=== PATIENT | female | born 1955 | race Caucasian/White ===

== ENCOUNTER 2017-01-04 01:16 | Emergency (ER) | payer MEDICARE ==
[~2017-01-04 01:16] MED LIST: AMITRIPTYLINE100 MG PO; ASPIRIN CHEWABL81 MG PO; BACLOFEN 10MG T10 MG PO; BREO ELLIPTA 11 EACH INH; CALCIUM + VITA1 EACH PO; CELEXA 40MG TAB40 MG PO; COZAAR50 MG PO; FERROUS SULFAT324 MG PO; LIDOCAINE 5% P1 EACH TOP; LOVAZA1 GM PO; MELATONIN3 MG PO; NORCO 5-325 TA1 EACH PO; PRAVACHOL40 MG PO; PROBIOTIC1 EAC1 PO; VITAMIN B COMP1 EACH PO; VITAMIN D5000 UNIT PO; XARELTO10 MG PO; ZANTAC150 MG PO
[2017-01-04 02:08] LABS: BASOPHIL 0.1 % (0-2); EOSINOPHIL 0.8 % (0-5); HCT 41.1 % (37.0-47.0); HGB 13.5 g/dl (12.5-16.0); LYMPHOCYTE 3.5 % (15-48); MCH 30.3 pg (25.0-31.0); MCHC 32.8 g/dL (32.0-36.0); MCV 92.2 fL (78.0-100.0); MONOCYTE 9.5 % (0-12); MPV 11.8 fL (6.0-9.5); NEUTROPHIL 86.1 % (41-80); PLT 177 K/uL (150-400); RBC 4.46 M/uL (4.20-5.40); RDW 14.9 % (11.5-14.0); WBC 13.3 K/uL (4.0-10.5)
[2017-01-04 02:24] LABS: ALBUMIN 3.3 g/dL (3.4-4.8); BILIRUBIN - TOTAL 0.4 mg/dL (0.1-1.0); CREATININE 1.1 mg/dL (0.5-1.0); GLOBULIN (CALCULATION) 2.3 g/dL (2.2-4.2); POTASSIUM 3.5 mmol/L (3.5-5.1); TOTAL PROTEIN 5.6 g/dL (6.4-8.3)
[2017-01-04 04:31] LABS: BILIRUBIN NEGATIVE (NEGATIVE); BLOOD NEGATIVE Ery/uL (NEGATIVE); CLARITY CLEAR (CLEAR); COLOR YELLOW (YELLOW); GLUCOSE (U) NORMAL (NORMAL); KETONE (U) NEGATIVE (NEGATIVE); LEUKOCYTES NEGATIVE Leu/uL (NEGATIVE); NITRITE NEGATIVE (NEGATIVE); PROTEIN NEGATIVE (NEGATIVE); SPECIFIC GRAVITY <=1.005 (1.001-1.030); UROBILINOGEN 0.2 mg/dL (0.2-1.0)
[2017-01-04 04:41] LABS: AMPHETAMINES NEGATIVE (NEGATIVE); BENZODIAZEPINES NEGATIVE (NEGATIVE); COCAINE NEGATIVE (NEGATIVE); MARIJUANA (THC) NEGATIVE (NEGATIVE)
[2017-01-04 04:42] LABS: BARBITURATES NEGATIVE (NEGATIVE); METHADONE NEGATIVE (NEGATIVE); TRICYCLIC ANTIDEPRESSANT NEGATIVE (NEGATIVE)
== END 2017-01-04 12:29 | disposition other institution (70) ==
LOC: FER 01:16
PROVIDERS: Emergency Medicine Emergency Medical Services
DX: I95.1 Orthostatic hypotension (principal); R11.2 Nausea with vomiting, unspecified; R10.84 Generalized abdominal pain; I10 Essential (primary) hypertension; J44.9 Chronic obstructive pulmonary disease, unspecified; F17.210 Nicotine dependence, cigarettes, uncomplicated; K21.9 Gastro-esophageal reflux disease without esophagitis; E78.5 Hyperlipidemia, unspecified; Z86.73 Personal history of transient ischemic attack (TIA), and cerebral infarction without residual deficits; M51.34 Other intervertebral disc degeneration, thoracic region; J98.11 Atelectasis; E27.9 Disorder of adrenal gland, unspecified; Z90.49 Acquired absence of other specified parts of digestive tract
CPT/HCPCS: 36415; 70450; 71010; 72125; 72128; 72131; 73080; 73630; 80053; 80305; 81003; 82150; 83605; 83690; 84484; 85025; 87040; 87045; 87046; 87088; 87493; 93005; 96374; J1100; J2405; J2543; J2930; J3010; Q9967

== ENCOUNTER → 2020-10-09 | Day surgery (SDC) | payer MEDICARE ==
[~2020-10-09] MED LIST changes: +24HR ALLERGY REL5 MG PO; +ANORO ELLIPTA1 EACH INH; +CALCIUM PO; +CERTAGEN1 EACH PO; +CYMBALTA 30MG C30 MG PO; +FAMOTIDINE40 MG PO; +HYDROXYZINE PAM25 MG PO; +LYRICA 50MG CAP50 MG PO; +LYRICA200 MG PO; +MAG-OXIDE 400M400 MG PO; +METFORMIN HCL500 MG PO; +MOBIC7.5 MG PO; +OXYCODONE-ACET1 EAC1 PO; +PERCOCET 5-3251 EACH PO; +POTASSIUM GLUC500 MG PO; +PROTONIX 40MG T40 MG PO; +SINGULAIR10 MG PO; +TIZANIDINE HCL4 MG PO; +TRIAMCINOLONE 080 GM TOP; +UROCIT-K10 MEQ PO; +VENTOLIN HFA IN18 GM INH; +VIT B6 PO; +VIT C PO; +VITAMIN B-121000 MCG PO; +VITAMIN C WIT1000 MG PO; +VOLTAREN100 GM TOP; +ZINC50 M2 PO
== END | disposition home or self-care (01) ==
LOC: FAS 10:12
DX: K29.50 Unspecified chronic gastritis without bleeding (principal); K21.9 Gastro-esophageal reflux disease without esophagitis; F17.210 Nicotine dependence, cigarettes, uncomplicated; M81.0 Age-related osteoporosis without current pathological fracture; F41.9 Anxiety disorder, unspecified; J44.9 Chronic obstructive pulmonary disease, unspecified; F32.9 Major depressive disorder, single episode, unspecified; E11.51 Type 2 diabetes mellitus with diabetic peripheral angiopathy without gangrene; I10 Essential (primary) hypertension; E78.5 Hyperlipidemia, unspecified; M06.9 Rheumatoid arthritis, unspecified; G47.30 Sleep apnea, unspecified; Z99.89 Dependence on other enabling machines and devices; Z86.73 Personal history of transient ischemic attack (TIA), and cerebral infarction without residual deficits; Z88.5 Allergy status to narcotic agent; Z79.82 Long term (current) use of aspirin; Z79.84 Long term (current) use of oral hypoglycemic drugs; Z79.899 Other long term (current) drug therapy
CPT/HCPCS: 88305; J2704; J7120

== ENCOUNTER 2021-09-29 20:58 | Day surgery (SDCO) | payer MEDICARE ==
[~2021-09-29] VITALS: Ht 160 cm; Wt 56.6 kg
[2021-09-29 23:06] LABS: BILIRUBIN NEGATIVE (NEGATIVE); BLOOD NEGATIVE Ery/uL (NEGATIVE); CLARITY CLEAR (CLEAR); COLOR YELLOW (YELLOW); GLUCOSE (U) NORMAL (NORMAL); LEUKOCYTES NEGATIVE Leu/uL (NEGATIVE); NITRITE NEGATIVE (NEGATIVE); PROTEIN NEGATIVE (NEGATIVE); UROBILINOGEN 0.2 mg/dL (0.2-1.0); pH 5.5 (5.0-9.0)
[2021-09-29 23:07] LABS: EOSINOPHIL 3.5 % (0-7); HCT 39.4 % (37.0-47.0); LYMPHOCYTE 40.7 % (15-48); MCH 28.4 pg (25.0-31.0); MCV 86.2 fL (78.0-100.0); MPV 11.7 fL (6.0-9.5); NEUTROPHIL 45.4 % (41-80); NRBC 0; PLT 225 K/uL (150-400); RBC 4.57 M/uL (4.20-5.40); RDW 13.3 % (11.5-14.0); WBC 8.3 K/uL (4.0-10.5)
[2021-09-29 23:28] LABS: LACTIC ACID 0.7 mmol/L (0.4-1.9)
[2021-09-29 23:39] LABS: ALBUMIN 3.6 g/dL (3.4-5.0); BILIRUBIN - TOTAL 0.3 mg/dL (0.2-1.0); BUN/CREAT RATIO (CALC) 14.4 RATIO; CREATININE 1.74 mg/dL (0.51-0.95); TOTAL PROTEIN 6.6 g/dL (6.4-8.2)
[2021-09-29 23:42] LABS: CORONAVIRUS 2019 SARS-COV-2 NEGATIVE (NEGATIVE); INFLUENZA A NAA NEGATIVE (NEGATIVE)
[2021-09-30] MEDS ORDERED: NORVASC5 MG PO (02:28)
[2021-09-30] MEDS ORDERED: ASPIRIN EC81 MG PO (02:29)
[2021-09-30] MEDS ORDERED: CITRUS CALCIUM1 EAC1 PO (02:29)
[2021-09-30] MEDS ORDERED: CYMBALTA 30MG C30 MG PO (02:30)
[2021-09-30] MEDS ORDERED: DRISDOL50000 UNIT PO (02:33)
[2021-09-30] MEDS ORDERED: PEPCID AC20 MG PO (02:33)
[2021-09-30] MEDS ORDERED: LASIX40 MG PO (02:34)
[2021-09-30] MEDS ORDERED: ATARAX25 MG PO (02:34)
[2021-09-30] MEDS ORDERED: COZAAR50 MG PO (02:35)
[2021-09-30] MEDS ORDERED: XYZAL5 MG PO (02:35)
[2021-09-30] MEDS ORDERED: METFORMIN HCL500 MG PO ×2 (02:36)
[2021-09-30] MEDS ORDERED: LOVAZA1 G1 PO (02:36)
[2021-09-30] MEDS ORDERED: PROTONIX40 MG PO (02:37)
[2021-09-30] MEDS ORDERED: PERCOCET 7.5/321 TAB PO (02:37)
[2021-09-30] MEDS ORDERED: KLOR-CON 1010 MEQ PO (02:38)
[2021-09-30] MEDS ORDERED: PRAVACHOL20 MG PO (02:39)
[2021-09-30] MEDS ORDERED: LYRICA 50MG CAP50 MG PO (02:39)
[2021-09-30] MEDS ORDERED: ZANAFLEX4 MG PO (02:40)
[2021-09-30 03:49] LABS: BASOPHIL 0.8 % (0-2); EOSINOPHIL 3.4 % (0-7); HCT 37.1 % (37.0-47.0); HGB 12.3 g/dl (12.5-16.0); LYMPHOCYTE 30.7 % (15-48); MCH 28.3 pg (25.0-31.0); MCHC 33.2 g/dL (32.0-36.0); MCV 85.5 fL (78.0-100.0); MONOCYTE 8.1 % (0-12); MPV 11.3 fL (6.0-9.5); NEUTROPHIL 56.1 % (41-80); NRBC 0; PLT 207 K/uL (150-400); RBC 4.34 M/uL (4.20-5.40); RDW 13.3 % (11.5-14.0); WBC 9.6 K/uL (4.0-10.5)
[2021-09-30 04:12] LABS: CREATININE 1.43 mg/dL (0.51-0.95); POTASSIUM 3.6 mmol/L (3.5-5.1)
--- NOTE | 2021-09-30 12:50 | NUR ---
09/30/21 Ms. Davis lives at home with her spouse. She has a quad cane, rw, 3in1, s. chair, and wc. She does not have services. - Ms. Davis reports to be able to meet her financial obligations. - No discharge planning needs are anticipated.
[2021-10-01 05:44] LABS: EOSINOPHIL 2.5 % (0-7); HCT 37.8 % (37.0-47.0); HGB 12.5 g/dl (12.5-16.0); LYMPHOCYTE 43.9 % (15-48); MCH 28.1 pg (25.0-31.0); MCHC 33.1 g/dL (32.0-36.0); MCV 84.9 fL (78.0-100.0); MONOCYTE 9.9 % (0-12); MPV 11.7 fL (6.0-9.5); NEUTROPHIL 42.4 % (41-80); NRBC 0; PLT 214 K/uL (150-400); RBC 4.45 M/uL (4.20-5.40); RDW 13.3 % (11.5-14.0); WBC 6.1 K/uL (4.0-10.5)
[2021-10-01 05:57] LABS: BUN/CREAT RATIO (CALC) 10.8 RATIO; CREATININE 0.83 mg/dL (0.51-0.95); POTASSIUM 3.2 mmol/L (3.5-5.1)
[2021-10-02] MEDS ORDERED: OXYCODONE-ACET1 EAC1 PO ×2 (12:37→13:06)
[2021-10-02] MEDS ORDERED: METHOCARBAMOL500 MG PO (12:37)
== END 2021-10-01 12:00 | disposition home or self-care (01) ==
LOC: FER 20:58 → FTCU 09-30 00:29
PROVIDERS: Allergy & Immunology Allergy; Internal Medicine; Nurse Practitioner; ADMIT Internal Medicine
DX: I95.9 Hypotension, unspecified (principal); K52.9 Noninfective gastroenteritis and colitis, unspecified; E86.9 Volume depletion, unspecified; N17.9 Acute kidney failure, unspecified; E78.5 Hyperlipidemia, unspecified; E11.9 Type 2 diabetes mellitus without complications; K21.9 Gastro-esophageal reflux disease without esophagitis; I10 Essential (primary) hypertension; G47.33 Obstructive sleep apnea (adult) (pediatric); F32.A Depression, unspecified; F17.200 Nicotine dependence, unspecified, uncomplicated; Z20.822 Contact with and (suspected) exposure to COVID-19; Z86.73 Personal history of transient ischemic attack (TIA), and cerebral infarction without residual deficits; Z88.5 Allergy status to narcotic agent; Z82.49 Family history of ischemic heart disease and other diseases of the circulatory system; Z79.82 Long term (current) use of aspirin; Z79.84 Long term (current) use of oral hypoglycemic drugs; Z79.899 Other long term (current) drug therapy
CPT/HCPCS: 36415; 71045; 80048; 80053; 81003; 83605; 83690; 83880; 84145; 84484; 85025; 87040; 93005; 94010; 94640; 94667; 94668; G0378; J2543; J7030; J7120; U0002